=== PATIENT | female | born 1955 | race Caucasian/White ===

== ENCOUNTER → 2017-07-21 | Outpatient (CLI) | payer BC | END | disposition home or self-care (01) | LOC: LAB 15:26 | DX: M17.12 Unilateral primary osteoarthritis, left knee (principal) ==

== ENCOUNTER 2017-07-30 20:54 | Emergency (ER) | payer BC ==
[~2017-07-30] VITALS: Wt 104.3 kg
[2017-07-30] MEDS ORDERED: AUGMENTIN 875875 MG PO (21:14)
== END 2017-07-30 21:14 | disposition home or self-care (01) ==
LOC: ED 20:54
DX: K02.9 Dental caries, unspecified (principal); K11.20 Sialoadenitis, unspecified